=== PATIENT | male | born 1980 | race Caucasian/White ===

== ENCOUNTER 2018-08-26 02:27 | Emergency (ER) | payer MEDICAID ==
[~2018-08-26] VITALS: Ht 162.6 cm; Wt 81.6 kg
--- NOTE | 2018-08-26 02:41 | NUR ---
Pt bib [id number] with c/o bilateral foot pain. Denies injury to area. Pt states he was walking barefoot.
[2018-08-26] MEDS ORDERED: IBUPROFEN 800 MG TABLET ONE (02:59)
[2018-08-26] MEDS ORDERED: IBUPROFEN 800 MG TABLET PO ONE (03:00)
--- NOTE | 2018-08-26 03:30 | NUR ---
Patient eloped from facility. ER physician notified.
--- NOTE | 2018-08-26 03:31 | NUR ---
Was about to provide/offer resources to pt, however pt eloped.
== END 2018-08-26 03:42 | disposition left against medical advice (07) ==
LOC: ER 02:30
DX: M79.671 Pain in right foot (principal); M79.672 Pain in left foot; F17.200 Nicotine dependence, unspecified, uncomplicated; F12.10 Cannabis abuse, uncomplicated; Z59.0 Homelessness; Z88.8 Allergy status to other drugs, medicaments and biological substances
CPT/HCPCS: A4663